=== PATIENT | female | born 1990 | race Caucasian/White ===

== ENCOUNTER → 2025-07-21 07:50 | Outpatient (REF) | payer OTHER, SELFPAY | LOC: PNTC 07:50 | PROVIDERS: ATTENDING PHYSICIAN Obstetrics & Gynecology | DX: O36.80X0 Pregnancy with inconclusive fetal viability, not applicable or unspecified (principal) | CPT/HCPCS: 76801; 76817 ==

== ENCOUNTER → 2025-08-18 13:19 | Outpatient (REF) | payer OTHER, SELFPAY | LOC: PNTC 13:19 | PROVIDERS: ATTENDING PHYSICIAN Obstetrics & Gynecology | DX: Z36.0 Encounter for antenatal screening for chromosomal anomalies (principal); Z36.82 Encounter for antenatal screening for nuchal translucency | CPT/HCPCS: 36415 ==

== ENCOUNTER → 2025-09-06 07:54 | Outpatient (REF) | payer OTHER, SELFPAY | LOC: PNTC 07:54 | PROVIDERS: ATTENDING PHYSICIAN Obstetrics & Gynecology | DX: L40.50 Arthropathic psoriasis, unspecified (principal); O09.92 Supervision of high risk pregnancy, unspecified, second trimester | CPT/HCPCS: 76805 ==

== ENCOUNTER → 2025-10-11 09:12 | Outpatient (REF) | payer OTHER, SELFPAY | LOC: PNTC 09:12 | PROVIDERS: ATTENDING PHYSICIAN Obstetrics & Gynecology | DX: O09.92 Supervision of high risk pregnancy, unspecified, second trimester (principal); L40.50 Arthropathic psoriasis, unspecified | CPT/HCPCS: 76811; 76817 ==

== ENCOUNTER 2025-11-02 16:42 | Emergency (ER) | payer OTHER, SELFPAY ==
[2025-11-02 16:51] VITALS: BP 132/82
[2025-11-02 17:18] LABS: Hematocrit 35.3 % (37.0-47.0); Hemoglobin 12.3 g/dL (12.0-16.0); Mean Corp Hgb Conc. 34.8 g/dL (33.0-37.0); Mean Corpuscular Volume 90.7 fL (81.0-99.0); Nucleated Red Blood Cells % 0 %; Platelet Count 241 10^3/uL (130-400); Red Cell Dist. Width 12.3 % (11.5-14.5)
[2025-11-02 17:33] LABS: ALT (SGPT) 77 U/L (0-35); AST (SGOT) 35 U/L (14-36); Albumin 3.7 g/dl (3.5-5.0); Alkaline Phosphatase 76 U/L (38-126); Blood Urea Nitrogen 6 mg/dl (7-17); COVID-19 Antigen Negative (Negative); Calcium 9.0 mg/dl (8.4-10.2); Carbon Dioxide 23 mmol/L (22-30); Chloride 103 mmol/L (98-107); Glucose 85 mg/dl (70-99); Potassium 3.7 mmol/L (3.5-5.1); Sodium 132 mmol/L (135-145); Total Protein 6.6 g/dl (6.3-8.2); eGFR > 60.00
--- NOTE | 2025-11-02 20:07 | ED.GENMED ---
History of Present Illness
General
Chief Complaint: Abnormal Lab Value
Time Seen by Provider: 11/02/25 19:39
History of Present Illness
History of Present Illness:
Patient is a 35-year-old 24 weeks presenting to the emergency department with shortness of breath. Patient states for the past week she has had shortness of breath. Initially started off exertionally but now has been having some at
rest as well. Follows with [facility]. Deferred her to her primary. Her primary did testing and found a positive D-dimer so she was sent here to the emergency department. Patient was able to pull up her results and her D-dimer was 4.04 mg/L
FEU. Patient denies any chest pain. No pleuritic pain. No hemoptysis leg swelling history of blood clots recent OCP or immobilization. No orthopnea or leg swelling.
Past History
Past History
ED Past Medical History: Asthma
ED Past Surgical History: None
Social History
Tobacco: Smoker
Alcohol: None
Personal: Single
Living: with family
Employment: Student
Family History
Family History: Other (Noncontributory)
Phy Exam
Physical Exam
Physical Exam:
GENERAL: in no acute distress
HEENT: normocephalic, extraocular movements intact, moist oral mucosa
NECK: normal inspection
RESPIRATORY: no respiratory distress, clear to auscultation bilaterally
CARDIOVASCULAR: regular rate and rhythm
ABDOMEN/: soft, non-distended, non-tender to palpation, no rebound or guarding
EXTREMITIES: non-tender, no edema/swelling
NEUROLOGIC: awake and alert, moves all extremities
SKIN: warm
Course
Orders/Labs/Results
Orders:
Orders
11/02/25 17:01
Electrocardiogram (*1) Urgent
Reason for Study: Shortness of Breath
EKG- Treatment ONCE
11/02/25 17:04
CMP [Comprehensive Metabolic Panel] Urgent
COVID-19 Antigen Urgent
Source: Nasal Swab
Complete Blood Count/With Diff Urgent
INF RAPID [Influenza A+B Rapid Molecular] Urgent
PAULO Source: Nasal Swab
Specimen Description:
11/02/25 20:01
CT Chest PE Study Urgent
Comment:
Reason For Exam: positive dimer
Abnormal Lab Results
11/02/25
17:04
RBC 3.89 L 10^6/uL
(4.20-5.40)
Hct 35.3 L %
(37.0-47.0)
MCH 31.6 H pg
(27.0-31.0)
Absolute Monos (auto) 0.7 H 10^3/uL
(0.1-0.6)
Lymphocytes % 19.4 L %
(20.5-51.1)
Sodium 132 L mmol/L
(135-145)
BUN 6 L mg/dl
(7-17)
Creatinine 0.5 L mg/dL
(0.6-1.0)
ALT 77 H U/L
(0-35)
11/02/25 17:04
11/02/25 17:04
Vital Signs
Initial and Last Documented VS:
Initial Vital Signs
Temp Pulse Resp BP Pulse Ox
97.6 F 75 16 132/82 97
11/02/25 16:51 11/02/25 16:51 11/02/25 16:51 11/02/25 16:51 11/02/25 16:51
Last Documented Vital Signs
Temp Pulse Resp BP Pulse Ox
97.6 F 82 19 126/69 97
11/02/25 16:51 11/02/25 21:15 11/02/25 21:15 11/02/25 21:00 11/02/25 21:15
MDM/Problems Addressed
Differential Diagnosis Includes:
Patient is a 35-year-old woman presenting to the emergency department with shortness of breath that has been ongoing for the past week. On arrival vitals unremarkable and exam is reassuring. Differential consists of shortness of breath related to
versus PE. Consider pulmonary edema though less likely given clear breath sounds. EKG per my interpretation with T wave inversions in lead III. Based on years criteria will proceed with CTA. Risk benefit discussion with patient.
Patient is amenable to proceeding with CTA
*Pulse Oximetry
SaO2: 97
Oxygen Mode of Delivery: Room air
Patient hypoxic: no
*Critical Care Note
Total Time (30-74mins, 75-104mins- exclusive of procedures): Not Applicable
Update Note
Update Note:
CT PE per my interpretation with no obvious PE. Per the official read negative for PE. Patient remained asymptomatic with stable vital signs. Will discharge patient at this time.
ED Attending Note
-
Portions of this chart may have been created with voice recognition software.� Occasional wrong word or��sound alike� substitutions may have occurred due to the inherent limitations of voice recognition software.
Discharge Plan
Departure
Patient Disposition: Home (Routine Discharge)
Date of Disposition: 11/02/25
Time of Disposition: 21:52
Patient with high blood pressure during this ER visit?: No
Discharge Problem:
Shortness of breath due to
Instructions: Shortness of breath in adults - ED (DC)
Prescriptions:
No Action
dicyclomine 20 MG tablet
20 mg PO QIDPRN PRN (Reason: abd pain) Qty: 20 0RF
Referrals:
Lizett Beatty PA-C [Family Provider, Family Practice]
Activity Restrictions/Additional Instructions:
Thank You for choosing [facility].
It was a pleasure meeting you and taking part in your care.
You were seen in the Emergency Department today for shortness of breath. While you were here we performed blood work and a CT scan, which was reassuring.
We would like for you to follow up with your primary care physician for further evaluation. If you experience fever, worsening of your symptoms, or develop any other new or concerning symptoms, please return to the Emergency Department immediately.
Please see the attached sheet for additional information.
Interventions
Interventions:
*General Assessment Last Done: 11/02/25 20:00
*Neglect/Abuse Screening Last Done: 11/02/25 16:51
*ED COVID-19 Vaccine History Last Done: 11/02/25 20:00
*ED Influenza Vaccine History Last Done: 11/02/25 20:00
[facility] Fall Risk Assessment Tool Last Done: 11/02/25 20:30
*Risk Screen - Suicide (C-SSRS) Last Done: 11/02/25 16:51
Discharge Date and Time
Print Language: ITALIAN
[2025-11-02 21:00] VITALS: BP 126/69
[2025-11-02 22:00] VITALS: BP 113/77
== END 2025-11-02 22:29 | disposition home or self-care (01) ==
LOC: EMR 16:42
PROVIDERS: Physician Assistant; EMERGENCY PHYSICIAN Student in an Organized Health Care Education/Training Program; FAMILY PHYSICIAN Physician Assistant Medical
DX: O99.512 Diseases of the respiratory system complicating pregnancy, second trimester (principal); O99.412 Diseases of the circulatory system complicating pregnancy, second trimester; O99.332 Smoking (tobacco) complicating pregnancy, second trimester; R06.02 Shortness of breath; F17.200 Nicotine dependence, unspecified, uncomplicated; Z3A.24 24 weeks gestation of pregnancy; Z20.822 Contact with and (suspected) exposure to COVID-19
CPT/HCPCS: 99285; 71275; 80053; 85025; 87502; 87811; 93005; Q9967